=== PATIENT | female | born 1955 | race Caucasian/White ===

== ENCOUNTER 2025-04-22 03:55 | Emergency (ER) | payer OTHER, MEDICARE ==
[~2025-04-22] VITALS: Ht 157.5 cm; Wt 85.9 kg
[2025-04-22 04:14] VITALS: TEMP 98.2
--- NOTE | 2025-04-22 04:43 | Physician Documentation ---
History of Present Illness ~ Chief Complaint: Mechanical Fall Stated Complaint: FALL Time Seen by MD: 04:42 HPI Patient presents to the emergency room with left-sided rib pain. She states that two days ago she was at [facility] for which a man that has having a medical condition and she helped him stand. After EMS had arrived patient went to get up falling directly on her chest. No loss of consciousness no head strike. She states she had some pain at that time but has continued to worsen since the injury. Last time she took Tylenol was yesterday before going to bed. Medication Reconciliation Allergies: Coded Allergies: aspirin (Verified Allergy, Unknown, 04/22/25) Review of Systems ROS All review of systems negative except as per HPI Physical Exam Vital Signs: Temperature: 98.2, Heart Rate: 114, Respiratory Rate: 16, BP: 145/72, Pulse Oximetry: 98, Weight: 85.900 Oxygen Flow Rate: 0 Physical Exam General: Patient is awake, alert, oriented x4 in no acute distress Head: Normocephalic and atraumatic. Eyes: Conjunctival normal. EOMI. PERRL. ENT: Mucous membranes moist. Neck: Supple, trachea is midline. Chest: Clear to auscultation bilaterally without rales, rhonchi, or wheezes. There is no accessory muscle use or retractions. Tenderness to palpation to left lateral ribs. No rash Progress Results/Orders Results/Orders Orders - DEV VILLA MD Chest,Single View (04/22/25 04:40) Completed Orders - DEV VILLA MD Chest,Single View (04/22/25 04:40) Vital Signs 04/22/25 04/22/25 04/22/25 04:14 04:52 04:55 Temp 98.2 Pulse 114 104 Resp 16 16 16 B/P (MAP) 145/72 139/82 (101) Pulse Ox 98 96 O2 Flow Rate 0 0 EKG/XRAY/CT/US/VASC/MRI Chest X-Ray : Additional Comments Chest x-ray interpreted by myself is negative for fractures, effusions and that has a normal cardiac silhouette. No pneumothorax Medical Decision Making Findings Patient presents to the emergency room for evaluation of left-sided rib pain status post fall. Differentials include but are not limited to fractures, soft tissue injury, pneumothorax, shingles therefore chest x-ray performed which was reassuring. We will treat for rib pain. ER precautions regarding symptoms of pneumonia discussed. Departure Disposition: HOME / SELF CARE / HOMELESS Impression: Primary Impression: Rib pain Condition: Stable Discharge Instructions: Rib Contusion Referrals: NO PRIMARY CARE PROVIDER (PCP) Prescriptions Ondansetron 8mg ODT (Ondansetron Odt) 8 Mg Tab.rapdis 1 TAB PO Q6H for nausea/vomiting for 3 Days, #12 TAB 0 Refills Prov: DEV VILLA MD 04/22/25 Hydrocodone Bit/Acetaminophen 5/325 MG ([place] 5/325 MG) 5 Mg/325 Mg Tablet 1 TAB PO Q4-6 hours PRN for pain, #12 TAB Prov: DEV VILLA MD 04/22/25 Education Educated: Patient Educated regarding: diagnosis, treatment, need for follow up Signature Scribe Signature: No scribe Attestation: The note accurately reflects work and decisions made by me.Dev Villa MD 04/22/25 05:13 DEV VILLA MD Apr 22, 2025 04:43
--- NOTE | 2025-04-22 04:51 | RADIOLOGY REPORT ---
CHEST RADIOGRAPH Indication: MECH FALL, CHEST WALL PAIN Technique: Single frontal view of the chest was obtained COMPARISON: None FINDINGS: Lines and Tubes: None Lungs: Clear Pleura: No effusion. No pneumothorax. Cardiomediastinal contours: Unremarkable Bones: Unremarkable IMPRESSION: 1. No acute disease.
[2025-04-22] MEDS ORDERED: HYDR-3965 PO (05:13)
[2025-04-22] MEDS ORDERED: ONDA-245 PO (05:13)
[2025-04-22] MEDS: ketorolac trometh 15mg/ml vial 15 MG/ML ML IM ONE (05:27)
[2025-04-22] MEDS: ketorolac trometh 30MG/ML vial 30 MG/ML VIAL IM ONE (05:33)
[2025-04-22] MEDS: HYDROcodone/acetaminophen 5mg/325mg tablet PO ONE (05:33)
[2025-04-22] MEDS: ondansetron 4mg rapidly disintigrating tab PO ONE (05:34)
[2025-04-22 05:41] VITALS: BP 138/83; PULSE 84; RESP 16; O2SAT 98
== END 2025-04-22 05:50 | disposition home or self-care (01) ==
LOC: ER 03:57
DX: R07.81 Pleurodynia (principal); Z88.6 Allergy status to analgesic agent
CPT/HCPCS: 71045; 96372; 99284; J1885